=== PATIENT | female | born 1955 | race Caucasian/White ===

== ENCOUNTER 2018-06-08 08:19 | Inpatient (IN) ==
--- NOTE | 2018-05-11 12:31 | PAT Medication Instructions ---
Medication Instructions Date of Service May 11, 2018 Home Medications aspirin 81 mg PO QAM hydrochlorothiazide 25 mg PO QAM ibuprofen 200 mg PO QAM multivitamin 1 tab PO QAM olmesartan [Benicar] 40 mg PO QAM ASK your surgeon for instructions aspirin 81 mg PO QAM ibuprofen 200 mg PO QAM DO NOT take the morning of surgery hydrochlorothiazide 25 mg PO QAM multivitamin 1 tab PO QAM olmesartan [Benicar] 40 mg PO QAM Take morning of surgery NOTHING TO EAT OR DRINK AFTER MIDNIGHT Other Notes If you have any questions please call us at [phone] or [phone] or [phone] or [phone]
--- NOTE | 2018-05-11 14:47 | Anesthesiology Consultation ---
Date of Service May 11, 2018 Assessment & Plan (1) Encounter for pre-operative examination: Chart Review Chart Review: Acceptable Risk for Surgery and Patient seen in Pre Admission Testing Consults Requested none Teaching & Discussion Pre-Anesthesia Teaching/Discussion Notes: Instructed NPO after midnight before surgery, except medications with 15 cc of water. Medication instructions provided according to the PAT guidelines. History Surgery Operation Date: 06/08/18 07:00 Proposed Procedures p Right Total Knee Arthroplasty - Ap Stewart MD Height/Weight Height: 5 ft 6 in Weight: 89.9 kg Allergies Allergy/AdvReac Type Severity Reaction Status Date / Time adhesive Allergy Unknown blisters Verified 04/29/18 10:30 SODIUM PENTOTHAL AdvReac Unknown n/v Uncoded 04/29/18 10:30 Medications Home Medications Medication Instructions Recorded Confirmed Last Taken aspirin 81 mg PO QAM 03/10/18 04/29/18 Unknown hydrochlorothiazide 25 mg PO QAM 03/10/18 04/29/18 Unknown ibuprofen 200 mg PO QAM 03/10/18 04/29/18 Unknown multivitamin 1 tab PO QAM 03/10/18 04/29/18 Unknown olmesartan [Benicar] 40 mg PO QAM 03/10/18 04/29/18 Unknown Past Medical History Medical History Hypertension Osteoarthritis Past Surgical History Surgical History History of appendectomy History of breast biopsy x 2 (LEFT) History of cataract surgery BILATERAL History of colonoscopy History of exploratory laparotomy History of knee surgery rt knee x 2 Nausea and vomiting after administration of anesthetic agent Past Anesthesia History No Hx of Anesthesia Complications and No Family Hx of Anesthesia Complications History of PONV No Motion Sickness Screening History of Motion Sickness: Yes Social History Smoking Status: Never smoker Do You Dip or Chew Tobacco: No Hx Alcohol Use: Yes Alcohol type: wine and hard liquor alcohol intake frequency: a few times a month Hx Substance Use: No substance use type: does not use Exercise / Class Metabolic Activity II 4-5 Yardwork/Stairs/Walk up hill (Able to climb FOS. Denies CP or SOB. ) Review of Systems Patient denies chest pain, shortness of breath, dyspnea on exertion, reflux, cough, wheezing, palpitations. +joint pain (knee) Physical Exam Vital Signs BP: 141/84 P: 82 R: 16 T: 98.0 SPO2: 98% on RA ENMT Thyromental Distance: > or= 3.5 Finger Breadths (3.5) Mallampati Class: I Neck normal visual inspection and trachea midline; neck extension not limited Respiratory normal respiratory effort Auscultation: lungs clear to auscultation bilaterally Cardiovascular Rate/Rhythm: regular rate and regular rhythm Heart Sounds: no murmur Vessels: no carotid bruit Neurologic moves all extremities Psychiatric Orientation: alert and oriented x 3 Testing Electrocardiogram Date: 05/11/18 Findings: + NSR @ (62) Chest X-Ray Date: 05/11/18 Findings: + NAD FINDINGS: Atherosclerosis of the aortic arch. Cardiac silhouette normal in size. Lungs and pleural spaces clear. Degenerative changes of the thoracic spine. Upper abdomen normal. IMPRESSION: 1. No acute cardiopulmonary disease. Laboratory Results 05/11/18 15:31 05/11/18 15:31 Blood Type A Negative 05/11/18 15:31 Antibody Screen NEGATIVE 05/11/18 15:31 PT 10.7 Seconds (9.0-12.0) 05/11/18 15:31 INR 1.1 (0.9-1.1) 05/11/18 15:31 APTT 26.6 Seconds (21.0-31.0) 05/11/18 15:31
--- NOTE | 2018-05-11 15:57 | XRay Report ---
XR chest Pre-admission PA/Lat CLINICAL HISTORY: 62 years-old Female presenting with preoperative assessment. TECHNIQUE: PA and lateral views of the chest were obtained. COMPARISON: None. FINDINGS: Atherosclerosis of the aortic arch. Cardiac silhouette normal in size. Lungs and pleural spaces clear . Degenerative changes of the thoracic spine. Upper abdomen normal. IMPRESSION: 1. No acute cardiopulmonary disease. Electronically signed by: Jaylan Esquivel M.D. 05/11/2018 3:55 PM
[2018-05-11 16:34] LABS: Basophils # (auto) 0.02 K/uL (0-0.2); Basophils % (auto) 0.4 %; Eosinophils # (auto) 0.11 K/uL (0-0.5); Eosinophils % (auto) 2.2 %; Hematocrit (blood only) 38.7 % (37-47); Lymphocytes # (auto) 1.37 K/uL (1.2-3.4); Lymphocytes % (auto) 26.9 %; Mean Corpuscular Hgb Conc 33.6 g/dL (32-36); Mean Platelet Volume 9.6 fL (7.4-10.4); Monocytes % (auto) 7.8 %; Neutrophils % (auto) 62.7 %; Platelet Count 280 K/uL (130-400); RDW Coefficient of Variation 13.5 % (11.5-14.5)
[2018-05-11 16:41] LABS: BUN Creatinine Ratio 29.1 (10-20); Blood Urea Nitrogen 17 mg/dl (7-18); Calcium 8.9 mg/dl (8.5-10.1); Carbon Dioxide 30 mmol/L (21-32); Chloride 103 mmol/L (98-107); Creatinine Clr Calc Pharmacy 114.5 ml/min; Est GFR (African American) 115.5; Est GFR (Non-African American) 99.6; Glucose 93 mg/dl (70-99); Potassium 3.4 mmol/L (3.5-5.1); Sodium 136 mmol/L (136-145)
[2018-05-11 16:42] LABS: C Reactive Protein < 0.29 mg/dl (0-0.29)
[2018-05-11 16:44] LABS: INR 1.1 (0.9-1.1); Partial Thromboplastin Time 26.6 Seconds (21.0-31.0); Prothrombin Time 10.7 Seconds (9.0-12.0)
--- NOTE | 2018-06-05 13:15 | History and Physical Report ---
DATE OF ADMISSION: 06/08/2018 CHIEF COMPLAINT: Right knee pain. HISTORY OF PRESENT ILLNESS: A 63-year-old female who presents specifically for surgical treatment of her right knee. She had a long history of right knee problems and had multiple surgeries on her knee in the past. She had some degree of a skiing injury many years ago, had a knee arthroscopy, partial meniscectomy and ACL reconstruction by Dr. Calabrese about 20 years ago. Over the years, she has developed increased pain and discomfort in her right knee. She has been through extensive conservative treatment including multiple injections and oral medicines which have become less successful over time. The Motrin gives her minimal relief. The shots have not helped much anymore. She has been trying to lose weight, but unable to do this due to her limited activity level. She describes global pain in her knee. The more she walks, the more it hurts. She limps more as the day goes on. She now would like to proceed with surgical treatment. PAST MEDICAL HISTORY: Significant for: 1. Hypertension. 2. Mild obesity with a BMI of 32. PAST SURGICAL HISTORY: Previous surgeries include: 1. Right knee surgery x2, one 20 years ago for ACL reconstruction. 2. Appendectomy. 3. Left breast lumpectomy for noncancerous disease. ALLERGIES: ADHESIVE TAPE. CURRENT MEDICINES: Include: 1. Benicar 40 mg. 2. Hydrochlorothiazide. 3. Aspirin 81 mg a day. 4. Multivitamin. 5. Ibuprofen. SOCIAL HISTORY: A 63-year-old female. She is . Lives in [place]. One drink per week. Does not smoke. FAMILY HISTORY: Significant for diabetes. REVIEW OF SYSTEMS: Negative for diabetes, neurologic problems, vascular problems or bleeding disorders. No chest pain or shortness of breath. No evidence of DVT or PE. PHYSICAL EXAMINATION: GENERAL: Reveals a pleasant 63-year-old female. Looks to be in pretty good health. HEENT: Benign. NECK: Supple. No lymphadenopathy. LUNGS: Clear to auscultation. HEART: Regular rate and rhythm. ABDOMEN: Soft, nontender, nondistended. EXTREMITIES: Grossly neurovascularly intact except as follows: Examination of the right knee reveals patient walks with a slight bit of a limp. She has fairly neutral alignment to her knee. She has well-healed incisions around the knee. She has a small to moderate sized knee effusion. Range of motion about 5 degrees short of full extension to about 120 degrees of flexion. There is no gross instability. Oralia's is uncomfortable, but not any mechanical symptoms. No pain with hip motion. X-RAYS: X-rays of right knee reviewed. Shows advanced right knee tricompartment DJD. A little bit more severe on the lateral side. She has complete loss of her lateral joint space on the 40-degree flexion films. She has got osteophytes in all 3 compartments. She has the evidence of the previous ACL reconstruction. ASSESSMENT: A 63-year-old female with 20+ years out from ACL reconstruction, partial meniscectomy with advanced right knee tricompartment DJD. She has failed conservative treatment and would like to have her right knee replaced. PLAN: We will take her to the operating room and do a right total knee replacement. The risks and benefits of this procedure were explained to the patient including but not limited to DVT, PE, , infection, neurological injury, vascular injury, bleeding problem, pain, limited range of motion, stiffness, failure to relieve symptoms, incomplete relief of symptoms, need for further surgery in future, fracture, leg length inequality, nerve palsy. I did tell her she is at increased risk of infection due to her previous surgery. We will likely have to take some of the hardware out depending on whether it impedes the implant placement. We will be prepared to do that. As far as discharge plans, she is planning to be discharged to home. We will see how she does in the hospital, but will likely benefit from some home health and I think she is planning on using [facility].
[~2018-06-08 08:19] MED LIST: ACETAMINOPHEN 500 MG TAB PO SCH; BUPIVACAINE 0.5 % 5 MG/1 ML PF 10ML VIAL ONE; BUPIVACAINE LIPOSOME/PF 266 MG, BUPIVACAINE/EPINEPHRINE 50 ML, SODIUM CHLORIDE 0.9% 30 ... INFIL SCH; CEFAZOLIN 2000MG 2,000 MG/15 ML SYR IV SCH; EPINEPHrine INJ 1 MG/ML AMP ONE; FAMOTIDINE 20 MG TAB PO SCH; GABAPENTIN 300 MG x 2 PO SCH; LR 500ML BOLUS, THEN 15ML/HR IV SCH; LR 60ML/HR IV SCH; METOCLOPRAMIDE HCL 10 MG TABLET PO SCH; ROPIVACAINE 0.5% 5 MG/ML 30 ML VIAL ONE; SCOPOLAMINE 1.5 MG TDSY TD SCH; TRANEXAMIC ACID 1,000 MG **IV Intra-op IV SCH
--- NOTE | 2018-06-08 09:00 | History & Physical Bridge Note ---
Date of Service June 08, 2018 History & Physical Bridge Note I have examined the patient, reviewed the History & Physical and in the interval since the performance of the History & Physical I have noted the following changes of clinical significance: no changes noted
[2018-06-08] MEDS ORDERED: LABETALOL HCL IV 5 MG/ML 20ML IV STA (09:59)
[2018-06-08] MEDS ORDERED: ATROPINE SULFATE 0.1 MG/ML 10ML SYR IV PRN (10:00)
[2018-06-08] MEDS ORDERED: MEPERIDINE HCL 25 MG/ML CARP IV PRN (10:00)
[2018-06-08] MEDS ORDERED: ePHEDrine sulfate 50 MG/ML AMP IV PRN (10:00)
[2018-06-08] MEDS ORDERED: fentaNYL citrate 100 MCG/2 ML VIAL ONE (10:00)
[2018-06-08] MEDS ORDERED: ONDANSETRON INJ 2 MG/ML 2 ML VIAL IV PRN ×2 (10:00→13:45)
[2018-06-08] MEDS ORDERED: MIDAZOLAM HCL 1 MG/ML 2ML VIAL ONE (10:00)
[2018-06-08] MEDS ORDERED: HYDROmorphone INJ 1 MG/ML SYRINGE IV PRN (10:00)
[2018-06-08] MEDS ORDERED: fentaNYL citrate 100 MCG/2 ML VIAL IV PRN (10:00)
[2018-06-08] MEDS ORDERED: LABETALOL HCL IV 5 MG/ML 20ML IV PRN (10:00)
[2018-06-08] MEDS ORDERED: LABETALOL HCL IV 5 MG/ML 20ML IV ONE (10:00)
[2018-06-08] MEDS ORDERED: PHENYLEPHRINE 100MCG/ML 5ML SYR IV PRN (10:00)
[2018-06-08] MEDS ORDERED: BUPIVACAINE LIPOSOME 1.3% 266 MG/20 ML VIAL ONE (10:24)
[2018-06-08] MEDS ORDERED: BACITRACIN INJ 50,000 UNIT VIAL ONE (10:24)
[2018-06-08] MEDS ORDERED: SODIUM CHLORIDE 0.9% PF 50 ML VIAL ONE (10:24)
[2018-06-08] MEDS ORDERED: BUPIVACAINE 0.25% 30 ML VIAL ONE (10:25)
[2018-06-08] MEDS ORDERED: VANCOMYCIN HCL 1000MG/20ML VIAL ONE (10:25)
[2018-06-08] MEDS ORDERED: EPINEPHrine INJ 1 MG/ML AMP ONE (10:25)
[2018-06-08] MEDS ORDERED: PROPOFOL IV EMULSION 10 MG/ML 20 ML VIAL IV ONE (10:55)
[2018-06-08] MEDS ORDERED: LIDOCAINE HCL 2% 2 ML VIAL/AMP(20MG/ML) INFIL ONE (10:55)
--- NOTE | 2018-06-08 12:24 | Post Operative Brief Note ---
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
--- NOTE | 2018-06-08 12:56 | Anesthesiology Progress Note ---
Date of Service June 08, 2018 Anesthesia Post Procedure Vital Signs Vital Signs: Temp Pulse Pulse Resp BP Pulse Ox 06/08/18 12:50 65 16 143/81 H 100 06/08/18 12:40 69 16 127/64 100 06/08/18 12:30 36.5 C 75 16 116/61 96 06/08/18 09:56 172/107 H 06/08/18 09:11 36.1 C L 61 20 164/124 H 100 Notes Mental Status: alert / awake / arousable Patient Amnestic to Procedure: Yes Nausea / Vomiting: adequately controlled Pain: adequately controlled Airway Patency, RR, SpO2: stable & adequate BP & HR: stable & adequate Hydration State: stable & adequate Neuraxial Anesthesia: was administered and sensory block is resolving Anesthetic Complications: no major complications apparent and Pt Satisfied with anesthetic care
--- NOTE | 2018-06-08 13:11 | XRay Report ---
XR knee RT 2V routine CLINICAL HISTORY: Surgical Post Op DEGENERATIVE ARTHRITIS COMPARISON: Outside radiograph performed January 18, 2018 DISCUSSION: There are postsurgical changes of a total right knee arthroplasty and patellar resurfacin g. The femoral and tibial components appear well seated. Overlying skin herrera are visualized. There is gas within soft tissues consistent with recent surgery. IMPRESSION: Postsurgical changes of a total right knee arthroplasty. Electronically signed by: Rocky Coello M.D. 06/08/2018 1:09 PM
[2018-06-08] MEDS ORDERED: ALUMINUM/MAGNESIUM SUSP 30 ML UDC PO PRN (13:45)
[2018-06-08] MEDS ORDERED: METOCLOPRAMIDE HCL INJ 5 MG/ML 2 ML VIAL IV PRN (13:45)
[2018-06-08] MEDS ORDERED: MAGNESIUM HYDROXIDE SUSP 30 ML UDC PO PRN (13:45)
[2018-06-08] MEDS ORDERED: OXYCODONE HCL IR 5 MG TAB (IMMEDIATE RELEASE) PO PRN (13:45)
[2018-06-08] MEDS ORDERED: HYDROmorphone INJ 0.5 MG/0.5 ML SYR IV PRN (13:45)
[2018-06-08] MEDS ORDERED: BISACODYL 10 MG SUPP PR PRN (13:45)
[2018-06-08] MEDS ORDERED: NALOXONE HCL 0.4 MG/1 ML VIAL/CARP IV PRN (13:45)
[2018-06-08] MEDS ORDERED: ONDANSETRON INJ 2 MG/ML 2 ML VIAL ONE (13:50)
[2018-06-08] MEDS: KETOROLAC 30 MG/ML VIAL IV SCH ×2 (14:45→20:00)
[2018-06-08] MEDS: CHECK SCOPOLAMINE PATCH PLACEMENT SCH ×2 (15:48→23:22)
[2018-06-08] MEDS: SODIUM CHLORIDE 0.9% 1000ML 1,000 ML IV SCH (16:09)
[2018-06-08] MEDS: CEFAZOLIN 2000MG 2,000 MG/15 ML SYR IV SCH (17:46)
[2018-06-08] MEDS: FERROUS GLUCONATE 324 MG TAB PO SCH (17:47)
[2018-06-08] MEDS: ASCORBIC ACID 500 MG TAB PO SCH (17:47)
[2018-06-08] MEDS: ACETAMINOPHEN 500 MG TAB PO SCH (17:47)
[2018-06-08] MEDS ORDERED: TRANEXAMIC ACID 1,000 MG in 0.9 % SODIUM CHLORIDE 100 ML IV SCH (18:26)
[2018-06-08] MEDS: DOCUSATE SODIUM 100 MG CAP PO SCH (20:00)
[2018-06-08] MEDS: SENNA 8.6 MG TAB PO SCH (20:00)
[2018-06-08] MEDS: ASPIRIN 81 MG ECTAB PO SCH (20:00)
--- NOTE | 2018-06-08 21:19 | Operative Report ---
DATE OF OPERATION: 06/08/2018 SURGEON: Ap Stewart MD WOMEN SPECIALIST: BONNY Ferrer PREOPERATIVE DIAGNOSES: Right knee degenerative joint disease, status post a previous anterior cruciate ligament reconstruction. POSTOPERATIVE DIAGNOSES: Right knee degenerative joint disease, status post a previous anterior cruciate ligament reconstruction. PROCEDURE PERFORMED: 1. Right cemented posterior stabilized total knee arthroplasty. 2. Right knee hardware removal. COMPLICATIONS: None. ESTIMATED BLOOD LOSS: 50 mL FLUID REPLACEMENT: 1600 mL of crystalloid fluid replacement. TOURNIQUET TIME: 62 minutes at 300 mmHg. ANESTHESIA: Spinal with adductor canal block. DRAINS: None. SPECIMENS: 1. Right knee sent for pathology. 2. Hardware, right knee. OPERATIVE INDICATIONS: The patient is a 63-year-old fairly active female who had a long history of right knee problems. She has had a right knee operated on twice, most recently about 20 years ago for ACL reconstruction, medial meniscus repair. Over the year, she has developed increased pain and discomfort in her right knee. She has been through extensive conservative care. X-rays show tricompartment DJD. She elects to do total knee arthroplasty. OPERATIVE FINDINGS: Gross advanced right knee tricompartment DJD. This was most severe in the lateral compartment with eburnation of the lateral femoral condyle and lateral tibial plateau. The ACL graft had failed. There was retained hardware that had to be removed to complete her knee arthroplasty. She had a moderate sized joint effusion. OPERATIVE IMPLANTS: Operative implants consisted of, 1. Biomet Vanguard size 62.5 right posterior stabilized femoral component. 2. Biomet size 63 tibial tray. 3. A 10-mm posterior stabilized polyethylene insert. 4. A 31 x 8 all poly patella. OPERATIVE PROCEDURE: The patient was taken to the Operating Room and identified and placed on the Operating Room table in supine position. All contact areas were appropriately padded. I.V. antibiotics were provided by Anesthesia team. A spinal anesthetic and adductor canal block provided in the Holding Area. Palomares catheter was placed in sterile fashion. Right thigh tourniquet was then placed and the right lower extremity was then prepped and draped in usual sterile fashion. The right leg was elevated and exsanguinated with an Esmarch and tourniquet placed at 300 mmHg. An anterior approach of the right knee was then performed through a longitudinal incision using the previous incision distally and extending it proximally over the patella and over the quad tendon. Sharp dissection was carried through the subcutaneous tissue down to the level of the extensor mechanism. Medial parapatellar arthrotomy incision was made. Some subperiosteal dissection was carried out medially. The fat pad resected from beneath the patellar tendon. The lateral patellofemoral ligament was released and the patella was subluxated laterally and the knee was flexed. The osteophytes were taken off the distal femur. The ACL was absent. The PCL was released from the distal femur and the tibia subluxated anteriorly. The external tibial alignment jig was then placed in the anterior face of the tibia and adjusted 14 mm medially. Proximal tibial cut was made to remove about 3-4 mm of bone from the medial side. Tibia was then sized to a size 63. Some osteophytes were taken off medial and posteromedially. Attention was then drawn to the femur. The distal femur was entered with a sharp drill bit. Intramedullary canal was suctioned. A right 5 degree valgus cutting guide was placed. A distal femoral cutting block was pinned in place. Distal femoral cut was made to take an additional 3 mm of bone off the distal femur. I then brought the knee out in extension. I did a little pie crusting of the IT band and the posterolateral capsule to equalize the extension gap. Great care was taken to protect the peroneal nerve. The knee was then flexed. The femur was then sized to a size 62.5. We did downsize this slightly. The AP cutting block was pinned parallel to the epicondylar axis, which was 3 degrees of external rotation. The anterior cut, anterior chamfer, posterior cut, posterior chamfer cuts were made. Box cutting guide was placed and adjusted slightly lateral and the box cut was made. Upon making the box cut, we ran into the interference screw. We were unable to complete the cut. The box guide was removed. The interference screw was then removed and the box cut was completed. The knee was flexed. The remnants of the medial and lateral menisci were excised. I did have to release the popliteus in order to equalize the flexion gap. Trial femoral component was placed. Tibial tray was pinned in maximum external rotation. The drill and stem punch were used to create defect in proximal tibia for the tibial tray. Upon doing this, we ran into the tibial screw, so we had to remove this as well. The knee was then trialed and a 10 mm insert fit most appropriately. Attention was then drawn to the patella. The patella was cleaned of all soft tissues. The patellar thickness measured 18 mm in thickness and cut down to 13. It was sized to a size 31 patella. Lateral osteophyte was removed. Patellar button was placed. Knee was taken through range of motion and the patella tracked nicely with no thumbs test. Attention was then drawn toward placement of the permanent components. All trial components were removed. Bone plug was placed in the distal femur to limit blood loss. A double batch of Palacos G cement was mixed with an additional gram of vancomycin due to history of multiple surgeries. A Biomet Vanguard size 62.5 right posterior stabilized femoral component, size 63 tibial tray, 10 mm posterior stabilized polyethylene insert, and a 31 x 8 all poly patella was then cemented into place. Knee was brought out into full extension until cement hardened. A final cement check was then performed. Pericapsular tissues were injected with a total of 100 mL of combination of 20 mL of Exparel, 30 mL of normal saline, 50 mL of 0.25% Marcaine with epinephrine. The patient did receive 1 gram of tranexamic acid. The tourniquet was then let down for a tourniquet time 62 minutes. Hemostasis was assured using electrocautery. Extensor mechanism was closed with combination of #1 PDS suture and #1 Vicryl suture in [id number] fashion. Extensor mechanism was checked and found to be intact. Subcutaneous was then closed with #2 Dexon suture in buried interrupted fashion. Skin was closed with skin herrera. Leg was then cleaned and dried and a sterile dressing of Xeroform, 4 x 4's, sterile cast padding, Zeeshan bandage were applied. The patient then transferred to the Recovery Room in a stable condition. The patient tolerated the procedure well with no complication. All needle and sponge counts were correct at the end of the operation. I attest to the content of the Intraoperative Record and any orders documented therein. Any exception s are noted below.
[2018-06-09] MEDS: KETOROLAC 30 MG/ML VIAL IV SCH ×4 (02:04→21:10)
[2018-06-09] MEDS: CEFAZOLIN 2000MG 2,000 MG/15 ML SYR IV SCH (02:04)
[2018-06-09] MEDS: SODIUM CHLORIDE 0.9% 1000ML 1,000 ML IV SCH (02:04)
[2018-06-09] MEDS: ACETAMINOPHEN 500 MG TAB PO SCH ×3 (05:44→21:11)
[2018-06-09 06:09] LABS: Hematocrit (blood only) 32.3 % (37-47); Hemoglobin 10.8 g/dL (12.0-16.0); Mean Corpuscular Hgb Conc 33.4 g/dL (32-36); Mean Corpuscular Volume 88.7 fL (80-100); Platelet Count 208 K/uL (130-400); RDW Coefficient of Variation 13.6 % (11.5-14.5); RDW Standard Deviation 44.4 fL (36.4-46.3); Red Blood Count 3.64 M/uL (4.2-5.4); White Blood Count 6.33 K/uL (4.8-10.8)
[2018-06-09 06:36] LABS: BUN Creatinine Ratio 17.4 (10-20); Calcium 7.9 mg/dl (8.5-10.1); Creatinine Clr Calc Pharmacy 115.5 ml/min; Est GFR (African American) 115.3; Est GFR (Non-African American) 99.5
--- NOTE | 2018-06-09 08:39 | Anesthesiology Progress Note ---
Date of Service June 09, 2018 Anesthesia Post Procedure Vital Signs Vital Signs: Temp Pulse Pulse Resp BP Pulse Ox 06/09/18 07:09 36.9 C 66 16 142/73 H 96 06/09/18 03:34 36.9 C 67 16 108/63 96 06/08/18 23:39 36.4 C L 64 16 112/68 99 06/08/18 19:15 36.8 C 70 16 106/66 96 06/08/18 16:25 50 L 16 155/88 H 100 06/08/18 15:32 52 L 16 142/84 H 100 06/08/18 14:07 57 L 16 158/94 H 100 06/08/18 13:30 36.6 C 62 16 153/86 H 100 06/08/18 13:20 63 16 148/86 H 99 06/08/18 13:10 36.3 C L 63 16 143/93 H 98 06/08/18 13:00 62 16 136/79 99 06/08/18 12:50 65 16 143/81 H 100 06/08/18 12:40 69 16 127/64 100 06/08/18 12:30 36.5 C 75 16 116/61 96 06/08/18 09:56 172/107 H 06/08/18 09:11 36.1 C L 61 20 164/124 H 100 Notes Mental Status: alert / awake / arousable Nausea / Vomiting: adequately controlled Pain: adequately controlled Airway Patency, RR, SpO2: stable & adequate BP & HR: stable & adequate Hydration State: stable & adequate Neuraxial Anesthesia: was administered and sensory block resolved Anesthetic Complications: no major complications apparent and Pt Satisfied with anesthetic care
[2018-06-09] MEDS: MULTIVITAMIN TAB PO SCH ×2 (09:00)
[2018-06-09] MEDS: ASPIRIN 81 MG ECTAB PO SCH ×2 (09:00→21:10)
[2018-06-09] MEDS: OLMESARTAN MEDOXOMIL 40 MG TAB PO SCH (09:00)
[2018-06-09] MEDS: hydroCHLOROthiazide 25 MG TAB PO SCH (09:00)
[2018-06-09] MEDS: ASCORBIC ACID 500 MG TAB PO SCH ×2 (09:00→15:57)
[2018-06-09] MEDS: DOCUSATE SODIUM 100 MG CAP PO SCH ×2 (09:00→21:09)
[2018-06-09] MEDS: FERROUS GLUCONATE 324 MG TAB PO SCH ×2 (09:01→15:57)
[2018-06-09] MEDS ORDERED: POTASSIUM CHLORIDE 20 MEQ TABCR PO ONE ×2 (13:15→19:45)
--- NOTE | 2018-06-09 13:18 | Progress Note ---
DATE: 06/09/2018 SUBJECTIVE: A 63-year-old white female postop day 1 from a right knee replacement and hardware removal. She is doing well. Pain is controlled. She rates it about 2. No chest pain or shortness of breath. Not feeling dizzy or lightheaded. Therapy went well today. OBJECTIVE: VITAL SIGNS: Temperature 36.9. Vital signs stable. PHYSICAL EXAMINATION: GENERAL: Reveals a healthy, pleasant, middle-aged female. Sitting up in her bedside chair, looks pretty comfortable. EXTREMITIES: Examination of the right leg reveals the dressing to be clean, dry and intact. She can dorsiflex and plantarflex her foot appropriately. She is neurologically intact. LABORATORY DATA: Hemoglobin 10.8. Hematocrit 32.3. Electrolytes are relatively stable. Potassium is low at 3.0. ASSESSMENT: A 63-year-old white female postoperative day 1 from a right knee replacement and hardware removal, doing pretty well. Pain has been pretty well controlled. She is a bit anemic, but without symptoms. Her potassium is low and we will supplement that. PLAN: 1. DVT prophylaxis including thigh-high TEDs, SCDs, and aspirin twice a day. 2. PT/OT. She can weightbear as tolerated. Right total knee protocol. 3. Pain control, doing pretty well with current pain regimen. 4. Anemia. We will continue iron supplementation. 5. Hypokalemia. We will supplement her potassium. 6. Disposition: She is planning to be discharged home with some home health once adequately recovered.
[2018-06-09] MEDS: SENNA 8.6 MG TAB PO SCH (21:10)
[2018-06-10] MEDS: KETOROLAC 30 MG/ML VIAL IV SCH ×2 (02:39→08:28)
[2018-06-10] MEDS: ACETAMINOPHEN 500 MG TAB PO SCH (05:40)
[2018-06-10] MEDS ORDERED: POTASSIUM CHLORIDE 20 MEQ TABCR PO ONE (07:30)
--- NOTE | 2018-06-10 07:58 | Progress Note ---
DATE: 06/10/2018 SUBJECTIVE: A 63-year-old female postop day 2 from right knee replacement. She is doing quite well. Pain is controlled. Therapy went well. No new complaints. OBJECTIVE: VITAL SIGNS: Temperature is 36.9. Vital signs stable. PHYSICAL EXAMINATION: GENERAL: Reveals she is a healthy pleasant, middle-aged female. She is lying in bed, looks pretty comfortable. EXTREMITIES: Examination of the right leg reveals the leg to be well aligned. Dressing is clean, dry and intact. No significant drainage. Calf is soft and supple. She is neurologically intact. LABORATORY DATA: Potassium still low at 3.2, but improved. ASSESSMENT: A 63-year-old female postop day 2 from right knee replacement, doing pretty well. Her pain is controlled. Therapy has gone well. Potassium is still a bit low. We will supplement that. PLAN: 1. DVT prophylaxis including thigh-high TEDs, SCDs, and aspirin twice a day. 2. PT/OT. Weight bear as tolerated. Right total knee protocol. 3. Pain control, doing pretty well with current pain regimen. 4. Hypokalemia. We will continue potassium supplementation. She can follow up with her medical doctor on the outside. 5. Disposition: Plan to discharge to home with some home health later today.
[2018-06-10] MEDS: DOCUSATE SODIUM 100 MG CAP PO SCH (08:16)
[2018-06-10] MEDS: FERROUS GLUCONATE 324 MG TAB PO SCH (08:19)
[2018-06-10] MEDS: MULTIVITAMIN TAB PO SCH ×2 (08:19)
[2018-06-10] MEDS: OLMESARTAN MEDOXOMIL 40 MG TAB PO SCH (08:20)
[2018-06-10] MEDS: hydroCHLOROthiazide 25 MG TAB PO SCH (08:20)
[2018-06-10] MEDS: ASCORBIC ACID 500 MG TAB PO SCH (08:21)
[2018-06-10] MEDS: ASPIRIN 81 MG ECTAB PO SCH (08:21)
--- NOTE | 2018-06-12 03:43 | Discharge Summary ---
ADMITTING PHYSICIAN AND SURGEON: Ap Stewart MD ADMITTING DIAGNOSIS: Right knee degenerative joint disease status post previous anterior cruciate ligament reconstruction. SURGERY PERFORMED: 1. Right total knee arthroplasty. 2. Right knee hardware removal. SECONDARY DIAGNOSES: Hypertension, mild obesity. CONSULTATIONS: None obtained. HISTORY AND PHYSICAL EXAMINATION: Well documented in the patient's chart. HOSPITAL COURSE: The patient was admitted on 06/08/2018, underwent hardware removal and total knee arthroplasty, tolerated the procedure well. There were no complications. She was transferred to the PACU postoperatively and later to the orthopedic floor for further care. She was given Ancef for antibiotic prophylaxis, JOHN stockings, SCDs, and aspirin for DVT prophylaxis. Hemoglobin, hematocrit, and vital signs were monitored during hospital stay and remained stable. She did have some postoperative anemia, did not require any blood transfusion. She had some hypokalemia during her hospital stay and did receive potassium supplementation. There were no complications. On postoperative day 2, she was tolerating a regular diet. Pain was controlled with oral pain medicine. She was participating in physical therapy. On postop day 2, she was discharged home, set up with home health services. She was given printed discharge instructions including new prescriptions for Extra Strength Tylenol, aspirin, iron supplement, and oxycodone. Continue her home medications with the exception of her home dose of aspirin which was changed. Continue physical therapy, weightbearing as tolerated, JOHN stockings. Follow up in approximately 2 weeks postop or sooner if there are any problems or concerns.
== END 2018-06-10 13:54 | disposition home health service (06) | DRG 470 ==
LOC: ASU 08:19 → 3E 13:41